=== PATIENT | female | born 1965 | race Caucasian/White ===

== ENCOUNTER 2023-08-28 14:18 | Outpatient (RCR) | payer OTHER, SELFPAY | END 2023-09-23 15:03 | disposition home or self-care (01) | LOC: PT 14:18 | PROVIDERS: PCP Internal Medicine; Visit Provider Orthopaedic Surgery Orthopaedic Trauma | DX: M54.32 Sciatica, left side (principal) | CPT/HCPCS: 97110; 97112; 97140; 97162 ==

== ENCOUNTER 2024-05-24 09:59 | Outpatient (RCR) | payer OTHER, SELFPAY | END 2024-07-18 17:10 | disposition home or self-care (01) | LOC: PT 09:59 | PROVIDERS: PCP Internal Medicine; Visit Provider Internal Medicine | DX: M25.562 Pain in left knee (principal) | CPT/HCPCS: 97110; 97112; 97140; 97162 ==